=== PATIENT | male | born 1970 | race Caucasian/White ===

== ENCOUNTER 2017-04-29 16:03 | Emergency (ER) | payer MEDICAID ==
[~2017-04-29] VITALS: Ht 177.8 cm; Wt 90.7 kg
[2017-04-29 16:07] VITALS: BP 144/93
--- NOTE | 2017-04-29 16:20 | NUR ---
PATIENT BIBA TO BED 5 AT THIS TIME.
--- NOTE | 2017-04-29 16:24 | NUR ---
46M BIBA FROM FIELD C/O ALTERED LEVEL OF CONSCIOUSNESS; PT STATES " I GUESS I PASSED OUT IN MY CAR AFTER USING HEROIN TODAY"; PT AA&OX4 AT THIS TIME, PERRLA; BL LUNG SOUNDS CLEAR, RR EVEN/UNLABORED; PT STATES NO N/V/D AT THIS TIME; PT NOTED WITH LESIONS/REDNESS TO BL ARMS D/T SKIN POPPING PER PT; PT STATES NO PAIN AT THIS TIME; HX: HEP C & IV HEROIN USE PER PT; PT PLACED ON MONITOR, RESTING IN BED W/ HOB ELEVATED AND IN LOWEST POSITION; POSITIONED FOR COMFORT; ER MD MADE AWARE OF STATUS. WILL CONTINUE TO MONITOR.
--- NOTE | 2017-04-29 17:17 | NUR ---
ER MD DR. STILL EVALUATING PT AT BEDSIDE.
[2017-04-29 17:56] VITALS: BP 140/90
--- NOTE | 2017-04-29 17:56 | NUR ---
Patient discharged with v/s stable. Written and verbal after care instructions given and explained. Patient alert, oriented and verbalized understanding of instructions. Ambulatory with steady gait. All questions addressed prior to discharge. ID band removed. Patient advised to follow up with PMD. Rx of BACTRIM & KEFLEX given. Patient educated on indication of medication including possible reaction and side effects. Opportunity to ask questions provided and answered.
== END 2017-04-29 17:56 | disposition home or self-care (01) ==
LOC: MED 16:03
DX: F11.10 Opioid abuse, uncomplicated (principal); F17.210 Nicotine dependence, cigarettes, uncomplicated; F15.10 Other stimulant abuse, uncomplicated
CPT/HCPCS: 99283